=== PATIENT | male | born 1955 | race Caucasian/White ===

== ENCOUNTER → 2016-08-08 | Outpatient (CLI) | payer OTHER | LOC: OPSV 12:30 | DX: Z45.89 Encounter for adjustment and management of other implanted devices (principal); C15.9 Malignant neoplasm of esophagus, unspecified | CPT/HCPCS: G0463; J1642 ==

== ENCOUNTER → 2016-09-08 | Outpatient (CLI) | payer OTHER | LOC: OPSV 09-05 12:30 | DX: Z45.89 Encounter for adjustment and management of other implanted devices (principal); C15.9 Malignant neoplasm of esophagus, unspecified | CPT/HCPCS: 96523; J1642 ==

== ENCOUNTER → 2016-10-09 | Outpatient (CLI) | payer OTHER | LOC: OPSV 12:00 | DX: Z45.89 Encounter for adjustment and management of other implanted devices (principal); C15.9 Malignant neoplasm of esophagus, unspecified | CPT/HCPCS: 96523; J1642 ==

== ENCOUNTER → 2017-01-26 | Outpatient (CLI) | payer OTHER | LOC: OPSV 14:00 | DX: Z45.89 Encounter for adjustment and management of other implanted devices (principal); C15.9 Malignant neoplasm of esophagus, unspecified | CPT/HCPCS: 96523; J1642 ==